=== PATIENT | male | born 1975 | race Caucasian/White ===

== ENCOUNTER 2016-06-21 11:55 | Emergency (ER) | payer MEDICAID ==
[2016-06-21 12:50] VITALS: O2SAT 98
--- NOTE | 2016-06-21 13:46 | C.PDOC ---
History Of Present Illness 41 yr old male presents to the ER for evaluation of throat irritation, post nasal drip and dry cough for the past few weeks. Patient states its mainly during the night and morning. Patient denies fever, chills, chest pain, SOB, nausea, vomiting, abdominal pain, diarrhea, headache, weakness or numbness. Time Seen by Provider: 06/21/16 13:11 Chief Complaint (Nursing): Cough, Cold, Congestion History Per: Patient History/Exam Limitations: no limitations Onset/Duration Of Symptoms: Persistent (Few weeks) Sick Contacts (Context): None Past Medical History Reviewed: Historical Data, Nursing Documentation, Vital Signs Vital Signs: Last Vital Signs Temp 98.3 F 06/21/16 14:27 Pulse 72 06/21/16 14:27 Resp 18 06/21/16 14:27 BP 126/72 06/21/16 14:27 Pulse Ox 98 06/21/16 14:27 Family History: States: No Known Family Hx - Social History Hx Alcohol Use: No Hx Substance Use: No - Immunization History Hx Tetanus Toxoid Vaccination: No Hx Influenza Vaccination: Yes (up to date) Hx Pneumococcal Vaccination: No Review Of Systems Except As Marked, All Systems Reviewed And Found Negative. Constitutional: Negative for: Fever, Chills ENT: Positive for: Other ((+) Throat irritation. Post nasal drip.) Cardiovascular: Negative for: Chest Pain Respiratory: Positive for: Cough (Dry). Negative for: Shortness of Breath Gastrointestinal: Negative for: Nausea, Vomiting, Abdominal Pain, Diarrhea Neurological: Negative for: Weakness, Numbness, Headache Physical Exam - Physical Exam Appears: Well, Non-toxic, No Acute Distress Skin: Normal Color, Warm, Dry Eye(s): bilateral: Normal Inspection Nose: Normal, No Discharge Oral Mucosa: Moist, No Drooling Tongue: Normal Appearing Lips: Normal Appearing Throat: Erythema (mild B/L), No Exudate, No Drooling, Other (post-nasal drip) Neck: Normal, Normal ROM, Supple Cardiovascular: Rhythm Regular Respiratory: Normal Breath Sounds, No Stridor, No Wheezing Gastrointestinal/Abdominal: Normal Exam, Soft, No Tenderness Back: Normal Inspection Extremity: Normal ROM, No Pedal Edema Neurological/Psych: Oriented x3, Normal Speech ED Course And Treatment O2 Sat by Pulse Oximetry: 98 Pulse Ox Interpretation: Normal Progress Note: On re-evaluation, pt is afebrile, hemodynamicaly stable. Non- toxic. Tolerate Po well in ED. PusleOx 98% RA. ENT: mild pharyngeal erythema. Uvula midine, no edema. Neck: (-) meningeal sign. Lungs: CTA B/L, BS equal B/ L. Abd: Benign. Neurologicaly intact. Pt advised. ref. to f/u with PMD In 2- 3 dyas for re-evaluation. Return to ED if any worsening ro new changes. Medical Decision Making Medical Decision Making: PLAN: * Pepcid PO * Prednisone PO Disposition Counseled Patient/Family Regarding: Diagnosis, Need For Followup, Rx Given - Disposition Referrals: Tammy Perez [Staff Provider] - Arnaldo Frias MD [Staff Provider] - Disposition: HOME/ ROUTINE Disposition Time: 13:46 Condition: STABLE Additional Instructions: Encourage fluids Take medication as prescribed Follow up with PMD, ENT and GI in 2-3 days for re-evaluation. Return to ED if any worsening or new changes. Prescriptions: DiphenhydrAMINE [Benadryl] 25 mg PO BID #10 cap Prednisone [Deltasone] 40 mg PO DAILY #6 tablet Famotidine [Pepcid] 20 mg PO BID #10 tab Omeprazole Magnesium [Prilosec Otc] 20 mg PO DAILY #14 tablet. Instructions: Pharyngitis (ED), Gastroesophageal Reflux Disease (ED) - Clinical Impression Clinical Impression: GERD (gastroesophageal reflux disease), Throat irritation - PA / METEOROLOGY INSTRUCTOR / Resident Statement MD/DO has reviewed & agrees with the documentation as recorded. - Scribe Statement The provider has reviewed the documentation as recorded by the Scribe Brooke Hernandez All medical record entries made by the Viryibyves were at my direction and personally dictated by me. I have reviewed the chart and agree that the record accurately reflects my personal performance of the history, physical exam, medical decision making, and the department course for this patient. I have also personally directed, reviewed, and agree with the discharge instructions and disposition.
[2016-06-21 14:28] VITALS: BP 126/72; PULSE 72; RESP 18; TEMP 98.3
== END 2016-06-21 14:28 | disposition home or self-care (01) ==
LOC: C.ER 11:55
DX: K21.9 Gastro-esophageal reflux disease without esophagitis (principal); J39.2 Other diseases of pharynx

== ENCOUNTER 2016-12-30 18:38 | Emergency (ER) | payer MEDICAID ==
[2016-12-30 18:44] VITALS: TEMP 97.7; O2SAT 97
--- NOTE | 2016-12-30 20:46 | C.PDOC ---
History Of Present Illness 41 yo male come in for evaluation of cold sx for past 1 week associated with nasal congestion, productive cough with white sputum. Pt admits, similar sx in his son. Otherwise, pt denies fever, chills, headache, dizziness, drooling, dysphagia, dyspnea, wheezing, SOB, abd. pain, N/V/D, back pain, UTi sx. Ambulate to ED for evaluation, not in any apparent distress. Time Seen by Provider: 12/30/16 18:49 Chief Complaint (Nursing): Cough, Cold, Congestion History Per: Patient Onset/Duration Of Symptoms: Gradual Past Medical History Reviewed: Historical Data, Nursing Documentation, Vital Signs Vital Signs: Last Vital Signs Temp 97.7 F 12/30/16 18:43 Pulse 79 12/30/16 18:43 Resp 20 12/30/16 18:43 BP 126/85 12/30/16 18:43 Pulse Ox 97 12/30/16 18:43 - Medical History PMH: No Chronic Diseases Surgical History: Appendectomy Family History: States: Unknown Family Hx - Social History Hx Alcohol Use: No Hx Substance Use: No - Immunization History Hx Tetanus Toxoid Vaccination: No Hx Influenza Vaccination: Yes (up to date) Hx Pneumococcal Vaccination: No Review Of Systems Except As Marked, All Systems Reviewed And Found Negative. Constitutional: Negative for: Fever, Chills ENT: Positive for: Nose Discharge, Nose Congestion. Negative for: Ear Discharge Cardiovascular: Negative for: Chest Pain, Palpitations, Orthopnea, Edema Respiratory: Positive for: Cough, Sputum. Negative for: Wheezing Gastrointestinal: Negative for: Nausea, Vomiting, Abdominal Pain, Diarrhea Genitourinary: Negative for: Dysuria Musculoskeletal: Negative for: Neck Pain, Back Pain Skin: Negative for: Rash Neurological: Negative for: Weakness, Numbness, Altered Mental Status, Headache , Dizziness Physical Exam - Physical Exam Appears: Well, Non-toxic, No Acute Distress Skin: Normal Color, Warm, Dry, No Rash Eye(s): bilateral: PERRL Ear(s): Bilateral: Normal Nose: No Discharge Oral Mucosa: Moist, No Drooling Throat: No Erythema, No Exudate, No Drooling Neck: Supple Cardiovascular: Rhythm Regular, No Murmur, No JVD Respiratory: No Decreased Breath Sounds, No Accessory Muscle Use, No Stridor, No Wheezing Gastrointestinal/Abdominal: Soft, No Tenderness, No Distention, No Guarding Back: No CVA Tenderness Extremity: Normal ROM, No Pedal Edema Neurological/Psych: Oriented x3, Normal Speech ED Course And Treatment O2 Sat by Pulse Oximetry: 97 Pulse Ox Interpretation: Normal - Radiology CXR: Interpreted by Me, Viewed By Me CXR Interpretation: Yes: No Acute Disease Progress Note: On re-eval, pt is afebrile, hemodynamicaly stable. non-toxic. PulseOx 97% RA. ENT: no acute findings. neck: Supple, (-) meningeal sign. Lungs: CTA B/L, BS equal B/L. Abd: benign. CXR- normal study. Pt has clinical findings c/w bronchitis. Pt advised. ref. to f/u with PMD in 2-3 days for re-eavl. return if any new changes. Disposition Counseled Patient/Family Regarding: Studies Performed, Diagnosis, Need For Followup, Rx Given - Disposition Referrals: Henri Hannah MD [Primary Care Provider] - Disposition: HOME/ ROUTINE Disposition Time: 20:20 Condition: STABLE Prescriptions: Azithromycin [Zithromax] 250 mg PO DAILY #4 tab Benzonatate [Tessalon Perle] 100 mg PO TID #14 capsule Prednisone [Deltasone] 20 mg PO DAILY #3 tablet Instructions: Acute Bronchitis (ED) - Clinical Impression Clinical Impression: Bronchitis
[2016-12-30 20:49] VITALS: BP 120/71; PULSE 72; RESP 18
--- NOTE | 2016-12-31 08:26 | RAD ---
HISTORY: Cough COMPARISON: No prior. TECHNIQUE: Chest PA and lateral FINDINGS: LUNGS: No active pulmonary disease. PLEURA: No significant pleural effusion identified. No pneumothorax apparent. CARDIOVASCULAR: Prominent right epicardial fat pad or right hemidiaphragm attic mammillation is appreciated. OSSEOUS STRUCTURES: No significant abnormalities. VISUALIZED UPPER ABDOMEN: Normal. OTHER FINDINGS: None. IMPRESSION: No acute cardiopulmonary is appreciated. Prior right epicardial fat pad suggests at the right base medially versus mammillation of the right hemidiaphragm. No prior comparison available. Confirmation by CT available though this is likely a chronic finding.
== END 2016-12-30 20:50 | disposition home or self-care (01) ==
LOC: SUPCPDRO 18:38 → C.ER 18:38
DX: J40 Bronchitis, not specified as acute or chronic (principal)